=== PATIENT | male | born 1980 | race African-American/Black ===

== ENCOUNTER 2017-01-01 04:00 | Inpatient (IN) | payer OTHER ==
--- NOTE | ~2017-01-01 | DS ---
Unit #: [id number] #: [id number] Patient: KARL DEMPSEY [id number] [facility] [address] [place] [address] [id number] MR#: [id number] NAME: KARL DEMPSEY ROOM: [facility] Age: 36 Sex: M Admission Date: 01/01/2017 : 1980 Discharge Date: 01/04/2017 Attending Physician: Patrick Tapia M.D. Primary Care Physician: Primary Care Physician No DISCHARGE SUMMARY REASON FOR ADMISSION The patient is a 36-year-old male, admitted to the [address] [place] [address] unit voicing suicidal ideation and with a history of heroin and cocaine abuse. HOSPITAL COURSE The patient was admitted to the [address] [place] [address] and placed on routine detoxification protocol for opioids. Suicide precautions were put in place. The patient's detox was an uneventful. On 01/04, the patient admitted that he had fabricated suicidal ideation in order to gain admission to the hospital. While on the hospital, the patient had gotten in contact with his brother, who lives in local area and the patient stated that he would stay with his brother following his discharge from the hospital. He was much brighter and denied suicidal ideation. Discharge was ordered. FINAL DIAGNOSES Cocaine use disorder, opioid use disorder, and mood disorder, unspecified. DISPOSITION ON DISCHARGE The patient is discharged on no psychotropic or other medications and will take place through the auspices of community health resources. PROGNOSIS The patient's prognosis is considered fair. Dictated by... Patrick Tapia M.D. CB/gaston TD: 01/05/2017 03:02 JOB #: [id number] Unit #: [id number] #: [id number] Patient: KARL DEMPSEY DISCHARGE SUMMARY Page 1 of 1 X Patrick Tapia MD X DISCHARGE SUMMARY
--- NOTE | ~2017-01-01 | PN ---
Unit #: [id number] #: [id number] Patient: KARL DEMPSEY [id number] [facility] [address] [place] [address] [id number] MR#: [id number] NAME: KARL DEMPSEY ROOM: P210 Age: 36 Sex: M Admission Date: 01/01/2017 : 1980 Attending Physician: Patrick Tapia M.D. Admitting Physician: Patrick Tapia M.D. Primary Care Physician: Primary Care Physician Rosalba BYERS PROGRESS NOTES DATE 01/03/2017 DISCUSSION The patient is in somewhat brighter spirits today but complains of a good deal of fatigue. He reports that his suicidal thoughts have subsided, and he will live with his brother here in [place] following discharge thus making him eligible to participate in the intensive outpatient program following his discharge. Dictated by... Patrick Tapia M.D. CB/bzg TD: 01/03/2017 15:03 JOB #: [id number] [facility] PROGRESS NOTES Page 1 of 1 X Patrick Tapia MD PROGRESS NOTE
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
--- NOTE | ~2017-01-01 | HP ---
Unit #: [id number] #: [id number] Patient: KARL DEMPSEY [id number] [facility] [address] [place] [address] [id number] MR#: [id number] NAME: KARL DEMPSEY ROOM: P210 Age: 36 Sex: M Admission Date: 01/01/2017 : 1980 Attending Physician: Patrick Tapia M.D. Admitting Physician: Patrick Tapia M.D. Primary Care Physician: Primary Care Physician No HISTORY AND PHYSICAL HISTORY OF PRESENT ILLNESS Karl is a 36 year old admitted to [address] [place] [address] because of her polysubstance abuse which includes alcohol, cocaine and heroin. PAST MEDICAL HISTORY Long history of illicit substance abuse to include IV heroin. PAST SURGICAL HISTORY Nothing reported. ALLERGIES No known drug allergies. SOCIAL HISTORY Smokes 1 pack per day. Drinks alcohol on occasion. Admits to a long history of illicit substance abuse to include IV heroin. FAMILY HISTORY Medically noncontributory. REVIEW OF SYSTEMS CONSTITUTIONAL: No fever or chills. HEENT: Denies any sore throat, ear pain or runny nose. CARDIOVASCULAR: Denies chest pain, irregular heart rhythm or palpitations. CHEST: Denies shortness of breath or cough. No hemoptysis. GASTROINTESTINAL: Denies nausea, vomiting, diarrhea or chronic constipation. ENDOCRINE: Denies history of increased thirst or urination. No recent significant weight loss or gain. GENITOURINARY: Denies dysuria, frequency, or hematuria. SKIN: Denies any rashes. HEMATOLOGIC: Denies history of increased bleeding or bruising. MUSCULOSKELETAL: Denies any hot, swollen joints. No generalized muscle pain. NEUROLOGIC: Denies problems with vision or speech. No frequent, severe headaches. No numbness, tingling or weakness in any extremities. Denies loss of bladder or bowel control. CURRENT MEDICATIONS Detox protocol. PHYSICAL EXAMINATION GENERAL: Alert, well-nourished, in no apparent distress. Unit #: [id number] #: [id number] Patient: KARL DEMPSEY VITAL SIGNS: Blood pressure 104/64, heart rate 60, respirations 16, temperature 98.6. WEIGHT: 190. HEIGHT: 6 feet 4 inches. SKIN: Warm and dry without rash or lesion. HEENT: Normocephalic. TMs not viewed. Oral and nasal passages clear. Conjunctivae clear. PERRLA. EOMs intact. NECK: Supple without lymphadenopathy or thyromegaly. HEART: Regular rate and rhythm without murmur. LUNGS: Clear. ABDOMEN: Soft, nontender. : Not done. EXTREMITIES: No evidence of cyanosis, clubbing or edema. Moves all without focal deficit. NEUROLOGICAL: Grossly within normal limits. Cranial Nerves: II: Visual nava are intact. III, IV AND : Extraocular movements are intact. Pupils are equal, round and reactive to light. V: Facial sensation is grossly normal. VII: Facial movements and expression are normal. VIII: Auditory acuity grossly intact. IX, X: Uvula is midline. Phonation is normal. XI: Patient shrugs shoulders and turns head normally. XII: Tongue protrudes in the midline. Sensory and Motor Function: Sensory and motor sensation is grossly normal. Motor: moves all extremities well. Coordination: Gait is normal. Deep Tendon Reflexes: Intact. IMPRESSION Psychiatric admission. RECOMMENDATIONS PSYCHIATRIC: Per psychiatrist. MEDICAL: See no contraindications to participate in facility's activities. MEDICAL PROGNOSIS Good. MEDICAL CONDITION Stable. Dictated by... Dahiana Kearney P.A.-C. for Aimee Boudreaux/jarrod TD: 01/02/2017 16:40 JOB #: [id number] Unit #: [id number] #: [id number] Patient: KARL DEMPSEY HISTORY AND PHYSICAL Page 1 of 1 X Dahiana Kearney HISTORY AND PHYSICAL
[2017-01-06 06:53] LABS: HA AB IGM (HEPPAN) Nonreactive (()); HB CORE AB IGM (HEPPAN) Nonreactive (Nonreactive); HB S AG (HEPPAN) Nonreactive (Nonreactive); HEP C AB (HEPPAN) Nonreactive (Nonreactive); HEP C AB SIGNAL TO CUTOFF 0.08 ratio (<1.00)
== END 2017-01-04 16:30 | disposition home or self-care (01) | DRG 881 ==
LOC: EDSEX 04:00 → P2S 15:09
PROVIDERS: Specialist
PROC: HZ2ZZZZ Detoxification Services for Substance Abuse Treatment (ICD-10-PCS; principal; 2017-01-02)
DX: F34.1 Dysthymic disorder (principal); F11.10 Opioid abuse, uncomplicated; F10.10 Alcohol abuse, uncomplicated; F14.10 Cocaine abuse, uncomplicated; F17.210 Nicotine dependence, cigarettes, uncomplicated
CPT/HCPCS: 80074; 86592; 87806